=== PATIENT | male | born 1950 | race Caucasian/White ===

== ENCOUNTER → 2023-03-27 10:49 | Outpatient (BNVA) | payer MEDICARE, OTHER, SELFPAY | PROVIDERS: PCP Family Medicine; Visit Provider Podiatrist Foot & Ankle Surgery | DX: B35.1 Tinea unguium (principal); G62.9 Polyneuropathy, unspecified; E11.42 Type 2 diabetes mellitus with diabetic polyneuropathy; Z79.84 Long term (current) use of oral hypoglycemic drugs | CPT/HCPCS: 11721; 99203 ==

== ENCOUNTER 2023-04-26 14:37 | Emergency (ER) | payer MEDICARE, OTHER, SELFPAY ==
[2023-04-26 14:40] VITALS: BP 119/69; PULSE 62; RESP 18; TEMP 36.8; O2SAT 91; BMI 28.8
--- NOTE | 2023-04-26 14:50 | XRR_ITS ---
PROCEDURE INFORMATION: Exam: XR Chest Exam date and time: 04/26/2023 2:53 PM Age: 72 years old Clinical indication: Pain; Chest pressure; Additional info: Chest pain TECHNIQUE: Imaging protocol: Radiologic exam of the chest. Views: 1 view. COMPARISON: No relevant prior studies available. FINDINGS: Lungs: No focal consolidation. Streaky left basilar opacities. Pleural spaces: No pleural effusion. No pneumothorax. Heart/Mediastinum: No cardiomegaly. Bones/joints: No acute findings. XR/XR chest 1V portable [id number] IMPRESSION: Streaky left basilar opacities could represent atelectasis or infiltrate.
--- NOTE | 2023-04-26 14:50 | ECG_ITS ---
[facility] Test Date: 2023-04-26 Pat Name: Bubba Grimm Department: Room: Gender: Male Emergency Physician: : 1950 Requested By: Esteban Ochoa Order Number: [id number] Iban MD: Jayjay Steele M.D. Measurements Intervals [place] Rate: 71 P: 47 [place]: 176 QRS: -21 QRSD: 154 T: 41 QT: 452 QTc: 492 Interpretive Statements SINUS RHYTHM WITH OCCASIONAL VENTRICULAR PREMATURE COMPLEXES WITH OCCASIONAL SUPRAVENTRICULAR PREMATURE COMPLEXES INDETERMINATE AXIS RIGHT BUNDLE BRANCH BLOCK [120+ ms QRS DURATION, UPRIGHT V1, 40+ ms S IN I/aVL/V4/V5/V6] POSSIBLE ANTERIOR MYOCARDIAL INFARCTION , OF INDETERMINATE AGE [30 ms Q WAVE IN V3/V4, OR R < 0.2 mV IN V4] ST DEVIATION AND MODERATE T-WAVE ABNORMALITY, CONSIDER LATERAL ISCHEMIA [-0.1+ mV T-WAVE IN I/aVL/V5/V6] No previous ECG available for comparison Electronically Signed On 04-27-2023 8:36:35 DYNAMO TENDER by Jayjay Steele M.D. [email or web address] [email or web address] [email or web address] Engineeringveterans health administration.FAMOCO/store/NU/[id number] malorie
--- NOTE | 2023-04-26 15:19 | ED_ITS ---
HPI - Chest Pain 2 General: Chief Complaint: Chest Pain Stated Complaint: CP Time Seen by Provider: 04/26/23 14:51 History of Present Illness: Patient presents to the ER with complaints of chest pressure. Starting sometime last night. And throughout the day it stayed. It got worse and the patient decided to call EMS and when he got there it was a 10 out of 10 pressure but patient declines the colic pain. Patient was given 4 of Zofran, 324 mg aspirin, 3 sublingual nitro, and 1 inch Nitropaste and when patient presented to the ER his pain that he said was significantly less probably about a 3 or 4. Patient does have an extensive cardiac history with a three-vessel CABG and prior to that a stent. Patient sees a seasonal clerk in [place]. Patient says he has some leaky valves. Patient is not currently on any anticoagulation. Patient is a diabetic. Review of Systems 2 General: Reports: 10 or more systems reviewed and unremarkable except in HPI and below Physical Exam 2 Const: COMMON NORMALS: no acute distress, average body habitus, patient oriented x3, no limitations, healthy appearing, alert and well nourished HENMT: COMMON NORMALS: normocephalic, atraumatic, hearing grossly normal bilaterally, external ears normal, Normal external nose present, moist oral mucous membranes and oropharynx normal HEAD & SCALP: normocephalic and atraumatic NOSE: Normal external nose present EXTERNAL EAR: Yes external ears normal Eye: COMMON NORMALS: Equal, round and reactive pupils present, EOMs intact bilaterally, conjunctivae normal and no scleral icterus CONJUNCTIVA: Yes conjunctivae normal PUPIL: Yes Equal, round and reactive pupils present Neck/C-Spine: COMMON NORMALS: full ROM, no lymphadenopathy, supple, no meningeal signs, no JVD and Thyroid normal THYROID: Thyroid normal Chest: COMMONS NORMALS: normal inspection of the chest and normal palpation of entire chest wall Resp: COMMON NORMALS: normal respiratory effort, No retractions, No use of accessory muscles and clear to auscultation bilaterally AUSCULTATION: clear to auscultation bilaterally Cardio: COMMON NORMALS: no JVD, regular rate, regular rhythm, S1 normal heart sound present, S2 normal heart sound present, No gallops present (Cardio), No clicks present (Cardio), No murmurs present (Cardio) and No rub (Cardio) R ATE: regular rate RHYTHM: regular rhythm HEART SOUNDS: S1 normal heart sound present and S2 normal heart sound present GI: COMMON NORMALS: Normal to inspection, nondistended, normoactive bowel sounds present, Soft to palpation, non-tender, No hepatosplenomegaly present and no masses PALPATION: Yes Soft to palpation and Yes No hepatosplenomegaly present Neuro: COMMON NORMALS: patient oriented x3 SENSORIUM/ORIENTATION: Yes alert MENINGEAL SIGNS: Yes no meningeal signs Course 2 Vital Signs: Vital signs: Vital Signs Temperature 98.2 F 04/26/23 14:40 Pulse Rate 62 04/26/23 14:40 Respiratory Rate 18 04/26/23 14:40 Blood Pressure 119/69 04/26/23 14:40 Pulse Oximetry 91 04/26/23 14:40 Oxygen Delivery Me thod Room Air 04/26/23 14:40 MDM - Chest Pain Medical Decision Making Patient presented with chest pressure. Patient was worked up in normal chest pain fashion. Serial enzymes serial EKGs lab work chest x-ray all did not show any acute coronary causes of chest pain. Patient had elevated blood sugar of 405 and was given 10 units of subcu insulin and dropped it down to the low 200s. Patient is been pain-free during his entire time here. Patient be discharged home to follow-up with his PCP or seasonal clerk in the next 7 days for further evaluation testing. Differential Diagnosis Unlikely acute massive pulmonary embolism, acute respiratory failure, acute myocardial infarction, cardiac arrest or sudden cardiac Medical Records I reviewed the patient's medical records. Lab Data I reviewed the patient's lab results. 04/26/23 15:01 04/26/23 15:01 Radiology Impressions Chest X-Ray 04/26/23 14:50 IMPRESSION: Streaky left basilar opacities could represent atelectasis or infiltrate. Laboratory Results WBC 11.44 10^3/uL (3.29-11.43) H 04/26/23 15:01 RBC 5.04 10^6/uL (3.85-5.65) 04/26/23 15:01 Hgb 16.30 g/dL (11.27-16.99) 04/26/23 15:01 Hct 47.0 % (37-53) 04/26/23 15:01 MCV 93.3 fl (82-101) 04/26/23 15:01 MCH 32.3 pg (27-33) 04/26/23 15:01 MCHC 34.7 g/dL (30-55) 04/26/23 15:01 RDW 12.7 % (12.1-15.1) 04/26/23 15:01 Plt Count 204 10^3/cmm (157-399) 04/26/23 15:01 MPV 9.7 fL (7.4-10.4) 04/26/23 15:01 Neut % (Auto) 68.9 % 04/26/23 15:01 Lymph % (Auto) 19.3 % 04/26/23 15:01 [place] % (Auto) 8.4 % 04/26/23 15:01 Eos % (Auto) 1.0 % 04/26/23 15:01 Baso % (Auto) 0.6 % 04/26/23 15:01 Neut # (Auto) 7.88 10^3/uL (1.8-7.7) H 04/26/23 15:01 Lymph # (Auto) 2.2 10^3/uL (0.8-4.8) 04/26/23 15:01 [place] # (Auto) 1.0 10^3/uL (0.2-0.9) H 04/26/23 15:01 Eos # (Auto) 0.1 10^3/uL (0.0-0.8) 04/26/23 15:01 Baso # (Auto) 0.1 10^3/uL (0.0-0.1) 04/26/23 15:01 Nucleated RBC % (auto) 0 % 04/26/23 15:01 Nucleated RBCs # 0.0 /100WBC 04/26/23 15:01 PT 12.60 SECONDS (12.1-14.9) 04/26/23 15:01 INR 0.92 (0.8-1.2) 04/26/23 15:01 Sodium 130 mmol/L (136-145) L 04/26/23 15:01 Potassium 4.6 mmol/L (3.5-5.1) 04/26/23 15:01 Chloride 96 mmol/L (98-107) L 04/26/23 15:01 Carbon Dioxide 20 mmol/L (22-29) L 04/26/23 15:01 Anion Gap 18.6 (5-19) 04/26/23 15:01 BUN 33 mg/dL (8-23) H 04/26/23 15:01 Creatinine 1.3 mg/dL (0.7-1.2) H 04/26/23 15:01 GFR Calculation Not Reportable 04/26/23 15:01 Glucose 405 mg/dL (65-115) H 04/26/23 15:01 POC Glucose 256 mg/dL (70-110) H 04/26/23 18:46 Calculated Osmolality 294 mOsm/kg (285-295) 04/26/23 15:01 Calcium 9.2 mg/dL (8.5-10.5) 04/26/23 15:01 Magnesium 1.6 mg/dL (1.7-2.3) L 04/26/23 15:01 Total Bilirubin 0.9 mg/dL (0.15-1.2) 04/26/23 15:01 AST 23 U/L (0-40) 04/26/23 15:01 ALT 18 U/L (0-41) 04/26/23 15:01 Alkaline Phosphatase 76 U/L (40-130) 04/26/23 15:01 Troponin T Baseline 14 ng/L (0-15) 04/26/23 15:01 Troponin T 120 Minute 14.80 ng/L (0-15) 04/26/23 16:58 Delta Troponin T 0.80 ABS# (0-10) 04/26/23 16:58 NT-Pro-B Natriuret Pep 402 pg/mL (0-125) H 04/26/23 15:01 Total Protein 6.6 g/dL (6.6-8.7) 04/26/23 15:01 Albumin 3.9 g/dL (3.5-5.2) 04/26/23 15:01 Globulin 2.7 g/dL (1.3-4.6) 04/26/23 15:01 All radiology interpretation(s) finalized by discharge EKG Data EKG 1: I personally reviewed and interpreted this EKG as follows: EKG interpretation date: 04/26/23 EKG interpretation time: 14:46 Prior EKG tracings: not available for review Interpretation: EKG showed ventricular rate 71 beats minute, [place] interval 176, QRS 154, QTc of 492, sinus rhythm with occasional PVC, right bundle branch block EKG 2: I personally reviewed and interpreted this EKG as follows: EKG interpretation date: 04/26/23 EKG interpretation time: 17:15 Prior EKG tracings: available for review Interpretation: EKG showed ventricular rate 66 bpm, [place] interval 139, QRS duration 174, QTc of 460, sinus rhythm occasional PVC, right bundle branch block Discharge Plan Discharge Patient Disposition: Home Clinical Impression: Hyperglycemia due to diabetes mellitus Chest pain Qualifiers: Chest pain type: unspecified Qualified Code(s): R07.9 - Chest pain, unspecified Condition: Stable Prescriptions: New meloxicam 7.5 mg tablet 7.5 mg PO BID PRN (Reason: pain) Qty: 14 0RF No Action gabapentin 300 mg capsule 300 mg PO DAILY Januvia 100 mg tablet 100 mg PO DAILY omega 1-jgv-ghe-fish oil [Fish Oil] 1,000 mg (120 mg-180 mg) capsule 1 cap PO DAILY atorvastatin 80 mg tablet 80 mg PO DAILY metformin 500 mg tablet 500 mg PO BIDWMEAL metoprolol tartrate 50 mg tablet 50 mg PO DAILY lisinopril 20 mg tablet 20 mg PO DAILY amlodipine 5 mg tablet 5 mg PO DAILY Aspir-81 81 mg Tablet,Delayed Release (Dr/Ec) 81 mg PO DAILY Discharge Orders: Discharge ED (Routine); Ordered 04/26/23 Ordered By: Esteban Ochoa Referrals: Adair Guerrero DO [Primary Care Provider] - 1 week Patient Instructions: Hyperglycemia, Chest Pain (ED) Activity Restrictions/Additional Instructions: Your workup in ER did not reveal any acute causes of coronary type chest pain. It is thought your chest pain is noncardiac in nature. Your blood sugar was high in the emergency room and you were given 10 units subcu of insulin that reduced her sugar. If your chest pain returns or worsens come back to the ER for further evaluation testing. Otherwise follow-up with your PCP or seasonal clerk within the next 7 to 10 days for further evaluation testing. Coding Level of Care Code ED Automobile Service Station Manager for Chg Sacha
[2023-04-26 15:22] LABS: Basophils # 0.1 10^3/uL (0.0-0.1); Basophils % 0.6 %; Eosinophils # 0.1 10^3/uL (0.0-0.8); Lymphocytes # 2.2 10^3/uL (0.8-4.8); Lymphocytes % 19.3 %; Mean Corpuscular HGB Conc 34.7 g/dL (30-55); Mean Corpuscular Hemoglobin 32.3 pg (27-33); Mean Corpuscular Volume 93.3 fl (82-101); Mean Platelet Volume 9.7 fL (7.4-10.4); Monocytes % 8.4 %; Neutrophils # 7.88 10^3/uL (1.8-7.7); Neutrophils % 68.9 %; Nucleated Red Blood Cells % 0 %; Platelet Count 204 10^3/cmm (157-399); Red Blood Count 5.04 10^6/uL (3.85-5.65); Red Cell Distribution Width 12.7 % (12.1-15.1); White Blood Count 11.44 10^3/uL (3.29-11.43)
[2023-04-26 15:34] LABS: INR 0.92 (0.8-1.2)
[2023-04-26 15:45] LABS: Troponin(5th) Baseline 14 ng/L (0-15)
[2023-04-26 15:54] LABS: Albumin Level 3.9 g/dL (3.5-5.2); Alkaline Phosphatase 76 U/L (40-130); Blood Urea Nitrogen 33 mg/dL (8-23); Calcium 9.2 mg/dL (8.5-10.5); Carbon Dioxide 20 mmol/L (22-29); Chloride 96 mmol/L (98-107); Globulin 2.7 g/dL (1.3-4.6); Glucose 405 mg/dL (65-115); Magnesium 1.6 mg/dL (1.7-2.3); NT Pro B Type Natriuretic Pept 402 pg/mL (0-125); Osmolality Calculated 294 mOsm/kg (285-295); Sodium 130 mmol/L (136-145); Total Bilirubin 0.9 mg/dL (0.15-1.2); Total Protein 6.6 g/dL (6.6-8.7)
[2023-04-26 15:58] LABS: Anion Gap 18.6 (5-19); Potassium 4.6 mmol/L (3.5-5.1)
[2023-04-26 15:59] LABS: Alanine Aminotransferase 18 U/L (0-41); Aspartate Amino Transferase 23 U/L (0-40)
--- NOTE | 2023-04-26 17:15 | ECG_ITS ---
[facility] Test Date: 2023-04-26 Pat Name: Bubba Grimm Department: Room: Gender: Male Director Cardiology: : 1950 Requested By: Esteban Ochoa Order Number: [id number] Iban MD: Jayjay Steele M.D. Measurements Intervals [place] Rate: 66 P: 31 NC: 139 QRS: -31 QRSD: 174 T: 70 QT: 446 QTc: 469 Interpretive Statements SINUS RHYTHM WITH FREQUENT VENTRICULAR PREMATURE COMPLEXES INDETERMINATE AXIS RIGHT BUNDLE BRANCH BLOCK [120+ ms QRS DURATION, UPRIGHT V1, 40+ ms S IN I/aVL/V4/V5/V6] POSSIBLE ANTERIOR MYOCARDIAL INFARCTION , OF INDETERMINATE AGE [30 ms Q WAVE IN V3/V4, OR R < 0.2 mV IN V4] MODERATE T-WAVE ABNORMALITY, CONSIDER LATERAL ISCHEMIA [-0.1+ mV T-WAVE IN I/aVL/V5/V6] Compared to ECG 04/26/2023 14:46:27 No significant changes Electronically Signed On 04-27-2023 8:38:52 ALUMINUM POLISHER by Jayjay Steele M.D. [email or web address]/store/OM/[id number]
[2023-04-26] MEDS: insulin lispro 100 unit/1 mL 10 UNIT SUBCUT (17:23)
[2023-04-26] MEDS: ketorolac 30 mg/mL INJ IVP (17:29)
[2023-04-26 18:48] LABS: Glucose Point of Care 256 mg/dL (70-110)
[2023-04-26 19:25] VITALS: BP 121/66; PULSE 76; RESP 16; O2SAT 98
== END 2023-04-26 19:27 | disposition home or self-care (01) ==
PROVIDERS: Emergency Provider Emergency Medicine; PCP Family Medicine
DX: E11.65 Type 2 diabetes mellitus with hyperglycemia (principal); R07.9 Chest pain, unspecified; Z79.82 Long term (current) use of aspirin; Z79.84 Long term (current) use of oral hypoglycemic drugs
CPT/HCPCS: 36415; 36416; 71045; 80053; 82962; 83735; 83880; 84484; 85025; 85610; 93005; 96372; 96374; 99285; J1815; J1885

== ENCOUNTER → 2023-06-22 10:52 | Outpatient (BNVA) | payer MEDICARE, OTHER, SELFPAY | PROVIDERS: PCP Family Medicine; Visit Provider Podiatrist Foot & Ankle Surgery | DX: B35.1 Tinea unguium (principal); G62.9 Polyneuropathy, unspecified; E11.42 Type 2 diabetes mellitus with diabetic polyneuropathy; Z79.84 Long term (current) use of oral hypoglycemic drugs | CPT/HCPCS: 11721 ==

== ENCOUNTER 2023-08-22 14:59 | Emergency (ER) | payer MEDICARE, OTHER, SELFPAY ==
[2023-08-22] VITALS (7 sets, daily range): BP systolic 115–145; BP diastolic 54–69; PULSE 54–59; RESP 16–18; TEMP 36.4; O2SAT 93–97; BMI 28.8
--- NOTE | 2023-08-22 15:03 | ECG_ITS ---
Test Date: 2023-08-22 Pat Name: Bubba Grimm Department: Room: Gender: Male Cad Librarian: : 1950 Requested By: Josee Muñoz Order Number: [id number] Iban MD: Dorinda Gutiérrez M.D. Measurements Intervals [place] Rate: 58 P: 216 NM: 182 QRS: 152 QRSD: 171 T: 222 QT: 441 QTc: 436 Interpretive Statements SINUS BRADYCARDIA RIGHT AXIS DEVIATION [QRS AXIS > 100] RIGHT BUNDLE BRANCH BLOCK [120+ ms QRS DURATION, UPRIGHT V1, 40+ ms S IN I/aVL/V4/V5/V6] MODERATE T-WAVE ABNORMALITY, CONSIDER LATERAL ISCHEMIA [-0.1+ mV T-WAVE IN I/aVL/V5/V6] Possible old high lateral wall NC Compared to ECG 04/26/2023 17:15:33 Right-axis deviation now present.Sinus rhythm no longer present Ventricular premature complex(es) no longer present Indeterminate axis no longer present.Myocardial infarct finding no longer present T-wave abnormality still present.Possible ischemia still present Electronically Signed On 08-22-2023 19:40:49 CDT by Dorinda Gutiérrez M.D. [id number] f
[2023-08-22 15:41] LABS: Basophils # 0.1 10^3/uL (0.0-0.1); Basophils % 0.7 %; Eosinophils # 0.2 10^3/uL (0.0-0.8); Eosinophils % 3.2 %; Hematocrit 39.7 % (37-53); Lymphocytes # 1.6 10^3/uL (0.8-4.8); Lymphocytes % 21.9 %; Mean Corpuscular HGB Conc 34.3 g/dL (30-55); Mean Corpuscular Hemoglobin 32.9 pg (27-33); Mean Corpuscular Volume 95.9 fl (82-101); Mean Platelet Volume 9.1 fL (7.4-10.4); Monocytes # 0.7 10^3/uL (0.2-0.9); Monocytes % 9.5 %; Neutrophils # 4.49 10^3/uL (1.8-7.7); Nucleated Red Blood Cells % 0 %; Platelet Count 171 10^3/cmm (157-399); Red Blood Count 4.14 10^6/uL (3.85-5.65); Red Cell Distribution Width 12.4 % (12.1-15.1); White Blood Count 7.13 10^3/uL (3.29-11.43)
[2023-08-22 16:00] LABS: Troponin(5th) Baseline 14 ng/L (0-15)
[2023-08-22 16:09] LABS: Alanine Aminotransferase 20 U/L (0-41); Alkaline Phosphatase 84 U/L (40-130); Anion Gap 16.7 (5-19); Aspartate Amino Transferase 14 U/L (0-40); Blood Urea Nitrogen 18 mg/dL (8-23); Carbon Dioxide 23 mmol/L (22-29); Chloride 102 mmol/L (98-107); Creatinine Clr Calc Pharmacy 67.8477; Globulin 2.6 g/dL (1.3-4.6); Glucose 226 mg/dL (65-115); NT Pro B Type Natriuretic Pept 375 pg/mL (0-125); Osmolality Calculated 293 mOsm/kg (285-295); Potassium 4.7 mmol/L (3.5-5.1); Sodium 137 mmol/L (136-145); Total Bilirubin 0.8 mg/dL (0.15-1.2); Total Protein 6.6 g/dL (6.6-8.7)
--- NOTE | 2023-08-22 16:19 | ED_ITS ---
HPI - Chest Pain 2 General: Chief Complaint: Chest Pain Stated Complaint: chest pain Time Seen by Provider: 08/22/23 16:19 History of Present Illness: 73-year-old male presents emergency depa rtment with complaints of intermittent chest tightness throughout the day today that feels like it is going to his neck. The patient states he is not currently having pain at this time and at presentation to the emergency department. He states that he does have an extensive cardiac history with a quadruple bypass and became concerned. He denies nausea vomiting fevers chills or night sweats. He denies dizziness or lightheaded feeling. He denies dyspnea or dyspnea on exertion. Associated symptoms: Deny dyspnea Review of Systems 2 General: Reports: 10 or more systems reviewed and unremarkable except in HPI and below Card: Reports: chest pain Resp: Denies: dyspnea Physical Exam 2 Narrative: EXAM NARRATIVE: General: Alert, no acute distress. Skin: Warm, dry, Intact. Head: Normocephalic, atraumatic. Neck: Supple, trachea midline. Eye: Extraocular movements are intact. PERRLA Ears, nose, mouth and throat: mucosa moist. Cardiovascular: Regular, Normal peripheral perfusion. Respiratory: Lungs are clear to auscultation, respirations are non-labored, breath sounds are equal, Symmetrical chest wall expansion. Gastrointestinal: Soft, Nontender, Non distended, Normal bowel sounds. Musculoskeletal: Normal ROM, no deformity. Neurological: Alert and oriented, No focal neurological deficit observed. Psychiatric: Cooperative, appropriate mood & affect. Course 2 Vital Signs: Vital signs: Vital Signs Temperature 97.5 F L 08/22/23 19:35 Pulse Rate 57 L 08/22/23 19:35 Respiratory Rate 18 08/22/23 19:35 Blood Pressure 145/63 08/22/23 19:35 Pulse Oximetry 93 08/22/23 19:35 Oxygen Delivery Me thod Room Air 08/22/23 18:30 MDM - Chest Pain Medical Decision Making Physical exam completed and documented, I will obtain serial cardiac enzymes, serial twelve-lead EKGs, chest x-ray, CBC, CMP, urinalysis, B-type natriuretic peptide, PT/PTT/INR, and a chest x-ray. I have reviewed previous and pertinent medical records for assist in obtaining beneficial medical information to improved the care and treatment of the patient. Medical Records I reviewed the patient's medical records. Lab Data I reviewed the patient's lab results. 08/22/23 15:33 08/22/23 15:33 Radiology Impressions Chest X-Ray 08/22/23 19:04 IMPRESSION: 1. Cardiomegaly. 2. Emphysematous changes. 3. Right upper lobe calcified granuloma. 4. Sternotomy wire. 5. Minimal bibasilar atelectasis. Laboratory Results WBC 7.13 10^3/uL (3.29-11.43) 08/22/23 15:33 RBC 4.14 10^6/uL (3.85-5.65) 08/22/23 15:33 Hgb 13.60 g/dL (11.27-16.99) 08/22/23 15:33 Hct 39.7 % (37-53) 08/22/23 15:33 MCV 95.9 fl (82-101) 08/22/23 15:33 MCH 32.9 pg (27-33) 08/22/23 15:33 MCHC 34.3 g/dL (30-55) 08/22/23 15:33 RDW 12.4 % (12.1-15.1) 08/22/23 15:33 Plt Count 171 10^3/cmm (157-399) 08/22/23 15:33 MPV 9.1 fL (7.4-10.4) 08/22/23 15:33 Neut % (Auto) 63.0 % 08/22/23 15:33 Lymph % (Auto) 21.9 % 08/22/23 15:33 [place] % (Auto) 9.5 % 08/22/23 15:33 Eos % (Auto) 3.2 % 08/22/23 15:33 Baso % (Auto) 0.7 % 08/22/23 15:33 Neut # (Auto) 4.49 10^3/uL (1.8-7.7) 08/22/23 15:33 Lymph # (Auto) 1.6 10^3/uL (0.8-4.8) 08/22/23 15:33 [place] # (Auto) 0.7 10^3/uL (0.2-0.9) 08/22/23 15:33 Eos # (Auto) 0.2 10^3/uL (0.0-0.8) 08/22/23 15:33 Baso # (Auto) 0.1 10^3/uL (0.0-0.1) 08/22/23 15:33 Nucleated RBC % (auto) 0 % 08/22/23 15:33 Nucleated RBCs # 0.0 /100WBC 08/22/23 15:33 Sodium 137 mmol/L (136-145) 08/22/23 15:33 Potassium 4.7 mmol/L (3.5-5.1) 08/22/23 15:33 Chloride 102 mmol/L (98-107) 08/22/23 15:33 Carbon Dioxide 23 mmol/L (22-29) 08/22/23 15:33 Anion Gap 16.7 (5-19) 08/22/23 15:33 BUN 18 mg/dL (8-23) 08/22/23 15:33 Creatinine 1.2 mg/dL (0.7-1.2) 08/22/23 15:33 GFR Calculation Not Reportable 08/22/23 15:33 Glucose 226 mg/dL (65-115) H 08/22/23 15:33 Calculated Osmolality 293 mOsm/kg (285-295) 08/22/23 15:33 Calcium 9.0 mg/dL (8.5-10.5) 08/22/23 15:33 Total Bilirubin 0.8 mg/dL (0.15-1.2) 08/22/23 15:33 AST 14 U/L (0-40) 08/22/23 15:33 ALT 20 U/L (0-41) 08/22/23 15:33 Alkaline Phosphatase 84 U/L (40-130) 08/22/23 15:33 Troponin T Baseline 14 ng/L (0-15) 08/22/23 15:33 Troponin T 120 Minute 12.89 ng/L (0-15) 08/22/23 17:38 Delta Troponin T -1.11 ABS# (0-10) L 08/22/23 17:38 NT-Pro-B Natriuret Pep 375 pg/mL (0-125) H 08/22/23 15:33 Total Protein 6.6 g/dL (6.6-8.7) 08/22/23 15:33 Albumin 4.0 g/dL (3.5-5.2) 08/22/23 15:33 Globulin 2.6 g/dL (1.3-4.6) 08/22/23 15:33 All radiology interpretation(s) finalized by discharge EKG Data EKG 1: Interpretation: Twelve-lead EKG obtained at 1714 reviewed at 1717 demonstrates sinus bradycardia with a right bundle branch block. Ventricular rate 56 bpm, [place] interval 196, QRS durations 178, QT 467, QTc 458 at present there is no ST elevation or depression to demonstrate acute ischemia or infarction. Discharge Plan Discharge Patient Disposition: Home Clinical Impression: Atypical chest pain Condition: Stable Prescriptions: No Action gabapentin 300 mg capsule 300 mg PO DAILY Januvia 100 mg tablet 100 mg PO DAILY omega 6-drd-mbj-fish oil [Fish Oil] 1,000 mg (120 mg-180 mg) capsule 1 cap PO DAILY atorvastatin 80 mg tablet 80 mg PO DAILY metformin 500 mg tablet 500 mg PO BIDWMEAL metoprolol tartrate 50 mg tablet 50 mg PO DAILY lisinopril 20 mg tablet 20 mg PO DAILY amlodipine 5 mg tablet 5 mg PO DAILY (DME) diabetic shoes with 3 inserts See Rx Instructions .Route .MEDSUPPLY Qty: 1 0RF Rx Instructions: As directed to the shoe juana Aspir-81 81 mg Tablet,Delayed Release (Dr/Ec) 81 mg PO DAILY meloxicam 7.5 mg tablet 7.5 mg PO BID PRN (Reason: pain) Qty: 14 0RF Discharge Orders: Discharge ED (Routine); Ordered 08/22/23 Ordered By: Ron Johnson Referrals: Adair Guerrero, [Primary Care Provider] - Discharge Diet: Usual diet Discharge Activity: Resume usual activity Patient Instructions: Opioid Safety, Pain Management Activity Restrictions/Additional Instructions: Activity Restrictions/Additional Instructions: Thank you for choosing [facility] for your healthcare needs today. Please realize that you were seen in the Emergency Department and that we are providing you with an emergency medical screening exam and this may not be a complete and all inclusive of all the testing and or medical work-up that you may need to determine your ailment or severity of your illness. It is very important that you follow-up as instructed with your Primary care provider or Specialist for additional evaluation and to discuss your medical treatment plan. You may return to the Emergency Department should you have concerns or if your condition changes or worsens in any way. Coding Level of Care Code ED Generating Plant Superintendent for Polina Goncalves
--- NOTE | 2023-08-22 17:13 | ECG_ITS ---
[facility] Test Date: 2023-08-22 Pat Name: Bubba Grimm Department: Room: Gender: Male Shadowgraph Operator: : 1950 Requested By: Josee Muñoz Order Number: [id number] Iban MD: Dorinda Gutiérrez M.D. Measurements Intervals [place] Rate: 56 P: 3 DE: 196 QRS: -23 QRSD: 178 T: -20 QT: 467 QTc: 451 Interpretive Statements SINUS BRADYCARDIA INDETERMINATE AXIS RIGHT BUNDLE BRANCH BLOCK [120+ ms QRS DURATION, UPRIGHT V1, 40+ ms S IN I/aVL/V4/V5/V6] MODERATE T-WAVE ABNORMALITY, CONSIDER LATERAL ISCHEMIA [-0.1+ mV T-WAVE IN I/aVL/V5/V6] Compared to ECG 08/22/2023 15:03:19 Indeterminate axis now present Right-axis deviation no longer present T-wave abnormality still present Possible ischemia still present Electronically Signed On 08-22-2023 20:04:57 CDT by Dorinda Gutiérrez M.D. [id number]
[2023-08-22 18:20] LABS: Troponin 5 2HR 12.89 ng/L (0-15)
[2023-08-22 18:25] LABS: Troponin 5 2HR Delta -1.11 ABS# (0-10)
--- NOTE | 2023-08-22 19:04 | XRR_ITS ---
PROCEDURE INFORMATION: Exam: XR Chest Exam date and time: 08/22/2023 7:04 PM Age: 73 years old Clinical indication: Chest pressure; Prior surgery; Surgery date: 6+ months; Surgery type: Cabg; Patient HX: C/O chest pain; Additional info: Cxp TECHNIQUE: Imaging protocol: Radiologic exam of the chest. Views: 1 view. COMPARISON: CR XR chest 1V portable [id number] 04/26/2023 2:53 PM FINDINGS: Lungs: Emphysematous changes. Right upper lobe calcified granuloma. Minimal bibasilar atelectasis. Pleural spaces: Unremarkable. No pleural effusion. No pneumothorax. Heart/Mediastinum: Cardiomegaly. Bones/joints: Sternotomy wire. XR/XR chest 1V portable [id number] IMPRESSION: 1. Cardiomegaly. 2. Emphysematous changes. 3. Right upper lobe calcified granuloma. 4. Sternotomy wire. 5. Minimal bibasilar atelectasis.
== END 2023-08-22 19:36 | disposition home or self-care (01) ==
PROVIDERS: Emergency Medicine; Emergency Provider Internal Medicine; PCP Family Medicine
DX: R07.89 Other chest pain (principal); Z79.84 Long term (current) use of oral hypoglycemic drugs; Z79.82 Long term (current) use of aspirin
CPT/HCPCS: 36415; 71045; 80053; 83880; 84484; 85025; 93005; 99285

== ENCOUNTER → 2023-08-27 10:46 | Outpatient (BNVA) | payer MEDICARE, OTHER, SELFPAY | PROVIDERS: PCP Family Medicine; Visit Provider Podiatrist Foot & Ankle Surgery | DX: B35.1 Tinea unguium (principal); G62.9 Polyneuropathy, unspecified; E11.42 Type 2 diabetes mellitus with diabetic polyneuropathy; Z79.84 Long term (current) use of oral hypoglycemic drugs | CPT/HCPCS: 11721 ==